=== PATIENT | female | born 1975 | race Caucasian/White ===

== ENCOUNTER 2017-01-08 00:45 | Inpatient (IN) | payer OTHER ==
[~2017-01-08] VITALS: Ht 157.5 cm; Wt 44.6 kg
[~2017-01-08 00:45] MED LIST: ADVIL200 MG PO; COMPAZINE10 MG PO; DAYSEE 0.15-0.1 EACH PO; FOLIC ACID0.8 MG PO; PROBIOTIC1 EAC1 PO; PROCRIT10000 UNI1 IV; PROPRANOLOL HCL80 MG PO; XANAX0.25 MG PO; ZANTAC150 MG PO
[2017-01-08 01:34] LABS: HEMATOCRIT 39.7 % (36.0-46.0); MCH 30.9 PG (29.0-34.0); MCHC 33.2 G/DL (30.0-36.0); MEAN PLAT.VOLUME 11.3 uM^3 (9.5-12.4); PLATELET COUNT 136 K/uL (156-360); RBC DIS.WIDTH-CV 14.6 % (11.8-14.6); RBC DIS.WIDTH-SD 49.4 % (39-53); RED BLOOD COUNT 4.27 M/uL (3.80-5.20); WHITE BLOOD COUNT 3.8 K/uL (4.1-10.2)
[2017-01-08 01:42] LABS: CHLORIDE 103 mEq/L (99-109); POTASSIUM 4.3 mEq/L (3.7-5.4); PTT 29.8 SEC (25-37); SODIUM 138 mEq/L (136-147)
[2017-01-08 01:44] LABS: GLUCOSE 87 mg/dL (70-99)
[2017-01-08 01:45] LABS: ANION GAP 11 MEQ/L (2-14)
[2017-01-08 01:47] LABS: GFR ESTIMATE (CALCULATED) > 59 mL/min/
[2017-01-08 01:48] LABS: UREA NITROGEN (BUN) 15 mg/dL (9-23)
[2017-01-08 02:12] LABS: TROP-I INTERPRETATION NEGATIVE; TROPONIN-I 0.01 ng/mL (0.0-0.30)
[2017-01-08] MEDS ORDERED: ATORVASTATIN CA20 MG PO (02:27)
[2017-01-08] MEDS ORDERED: CLOPIDOGREL75 MG PO (02:28)
[2017-01-08] MEDS ORDERED: AMLODIPINE BESYL5 MG PO (02:28)
[2017-01-08] MEDS ORDERED: ANTIVERT25 MG PO (02:29)
[2017-01-08] MEDS ORDERED: FLUTICASONE PRO16 GM BOTH NARES (02:29)
[2017-01-08 05:18] VITALS: BP 156/88
[2017-01-08 05:42] LABS: HDL CHOLESTEROL 45 MG/DL (Desirable>=50); LDL CHOLESTEROL 130 mg/dL (Desirable<100); NON-HDL CHOLESTEROL 160 mg/dL (Desirable<160); TOTAL CHOLESTEROL 205 mg/dL (Desirable<200); TRIGLYCERIDES 149 MG/DL (Normal: <150)
[2017-01-08 07:35] VITALS: BP 130/80
[2017-01-08 11:00] VITALS: BP 133/87
[2017-01-08 16:48] VITALS: BP 121/93
[2017-01-08 19:48] VITALS: BP 121/91
[2017-01-08 23:46] VITALS: BP 117/83
[2017-01-09 03:35] VITALS: BP 131/92
[2017-01-09 07:53] VITALS: BP 126/94
[2017-01-09 11:36] VITALS: BP 130/96
== END 2017-01-09 13:50 | disposition home health service (06) | DRG 69 ==
LOC: EME 00:45 → EDOF 04:04 → 5SOUTH 04:04 → ENRESERV 04:08 → 5SOUTH 05:11
PROVIDERS: Emergency Medicine
DX: G45.9 Transient cerebral ischemic attack, unspecified (principal); G43.109 Migraine with aura, not intractable, without status migrainosus; C34.12 Malignant neoplasm of upper lobe, left bronchus or lung; C78.7 Secondary malignant neoplasm of liver and intrahepatic bile duct; C79.31 Secondary malignant neoplasm of brain; J91.0 Malignant pleural effusion; C79.51 Secondary malignant neoplasm of bone; D70.1 Agranulocytosis secondary to cancer chemotherapy; D69.59 Other secondary thrombocytopenia; T45.1X5A Adverse effect of antineoplastic and immunosuppressive drugs, initial encounter; R47.01 Aphasia; R47.1 Dysarthria and anarthria; H53.2 Diplopia; R20.2 Paresthesia of skin; R64 Cachexia; Z68.1 Body mass index [BMI] 19.9 or less, adult; D64.9 Anemia, unspecified; M51.36 Other intervertebral disc degeneration, lumbar region; R53.81 Other malaise; I10 Essential (primary) hypertension; K21.9 Gastro-esophageal reflux disease without esophagitis; Z86.73 Personal history of transient ischemic attack (TIA), and cerebral infarction without residual deficits; Z82.49 Family history of ischemic heart disease and other diseases of the circulatory system; Z87.891 Personal history of nicotine dependence
CPT/HCPCS: 70450; 70553; 71020; 72148; 80048; 80061; 84484; 85027; 85610; 85730; 93005; 99281; 99285; J1644; J7030

== ENCOUNTER 2017-01-18 07:13 | Inpatient (IN) | payer OTHER ==
[~2017-01-18] VITALS: Ht 157.5 cm; Wt 39.2 kg
[~2017-01-18 07:13] MED LIST changes: +AMLODIPINE BESYL5 MG PO; +ANTIVERT25 MG PO; +ATORVASTATIN CA20 MG PO; +CLOPIDOGREL75 MG PO; +FLUTICASONE PRO16 GM BOTH NARES; +INDERAL80 MG PO
[2017-01-18 08:06] LABS: EOSINOPHIL (%) 0.7 % (0-5); HEMATOCRIT 42.4 % (36.0-46.0); IMMATURE GRANULOCYTE (%) 0.2 % (0.0-0.7); INSTRUMENT ABS NEUTROPHIL CT 2.2 K/uL; MCH 30.3 PG (29.0-34.0); MCHC 32.5 G/DL (30.0-36.0); MCV 93.2 FL (83-99); MEAN PLAT.VOLUME 10.6 uM^3 (9.5-12.4); MONOCYTE (%) 20.5 % (3-12); MONOCYTE COUNT 0.8 K/uL (0-0.8); NEUTROPHIL COUNT 2.2 K/uL (1.8-6.4); RBC DIS.WIDTH-CV 14.8 % (11.8-14.6); RBC DIS.WIDTH-SD 50.7 % (39-53); RED BLOOD COUNT 4.55 M/uL (3.80-5.20); WHITE BLOOD COUNT 4.1 K/uL (4.1-10.2)
[2017-01-18 08:10] LABS: PLATELET COUNT 228 K/uL (156-360)
[2017-01-18 08:41] LABS: PROTHROMBIN TIME 10.8 SEC (10.2-12.9)
[2017-01-18 08:51] LABS: ANION GAP 11 MEQ/L (2-14); CHLORIDE 104 MEQ/L (99-109); SAMPLE HEMOLYSIS CHECK 0; SAMPLE ICTERIC CHECK 0; SAMPLE LIPEMIA CHECK 0; SODIUM 139 MEQ/L (136-147); TOTAL BILIRUBIN 0.4 MG/DL (0.0-1.0)
[2017-01-18 08:57] LABS: ALKALINE PHOSPHATASE 57 IU/L (3-129); GFR ESTIMATE (CALCULATED) > 59 mL/min/; GLUCOSE 87 mg/dL (70-99); UREA NITROGEN (BUN) 23 mg/dL (9-23)
[2017-01-18 11:58] LABS: HDL CHOLESTEROL 45 MG/DL (Desirable>=50); LDL CHOLESTEROL 89 mg/dL (Desirable<100); NON-HDL CHOLESTEROL 121 mg/dL (Desirable<160); TOTAL CHOLESTEROL 166 mg/dL (Desirable<200); TRIGLYCERIDES 158 MG/DL (Normal: <150)
[2017-01-18 12:53] VITALS: BP 130/82
[2017-01-18 13:13] LABS: Estimated Average Glucose 100 mg/dL (70-123); HEMOGLOBIN A1c (GLYCOHEMOGLOB) 5.1 % HGB (Below 5.7)
[2017-01-18 20:27] VITALS: BP 139/106
[2017-01-18 23:35] VITALS: BP 138/103
[2017-01-19 06:31] LABS: HEMATOCRIT 40.9 % (36.0-46.0); MCH 30.9 PG (29.0-34.0); MCHC 33.3 G/DL (30.0-36.0); MEAN PLAT.VOLUME 10.7 uM^3 (9.5-12.4); PLATELET COUNT 203 K/uL (156-360); RBC DIS.WIDTH-CV 14.7 % (11.8-14.6); RBC DIS.WIDTH-SD 50.4 % (39-53); WHITE BLOOD COUNT 3.7 K/uL (4.1-10.2)
[2017-01-19 07:03] VITALS: BP 146/87
[2017-01-19 15:06] VITALS: BP 141/87
[2017-01-20 00:54] VITALS: BP 135/97
[2017-01-20 02:16] LABS: POINT-OF-CARE METER ID UU14188625
[2017-01-20 02:16] LABS: HEMATOCRIT 40.2 % (36.0-46.0); MCH 30.9 PG (29.0-34.0); MCHC 33.1 G/DL (30.0-36.0); MCV 93.3 FL (83-99); MEAN PLAT.VOLUME 10.3 uM^3 (9.5-12.4); PLATELET COUNT 198 K/uL (156-360); RBC DIS.WIDTH-CV 14.7 % (11.8-14.6); RED BLOOD COUNT 4.31 M/uL (3.80-5.20); WHITE BLOOD COUNT 4.2 K/uL (4.1-10.2)
[2017-01-20 02:33] LABS: CHLORIDE 107 mEq/L (99-109); SODIUM 140 mEq/L (136-147)
[2017-01-20 02:40] LABS: TOTAL BILIRUBIN 0.3 mg/dL (0.0-1.0)
[2017-01-20 02:48] LABS: GLUCOSE 99 mg/dL (70-99)
[2017-01-20 02:49] LABS: ANION GAP 14 MEQ/L (2-14)
[2017-01-20 02:51] LABS: ALKALINE PHOSPHATASE 54 IU/L (3-129); GFR ESTIMATE (CALCULATED) > 59 mL/min/
[2017-01-20 02:53] LABS: UREA NITROGEN (BUN) 14 mg/dL (9-23)
[2017-01-20 08:00] VITALS: BP 135/111
[2017-01-20 15:50] VITALS: BP 142/102
[2017-01-20 21:09] VITALS: BP 145/90
[2017-01-20 23:42] VITALS: BP 122/79
[2017-01-21 07:39] VITALS: BP 138/90
[2017-01-21 16:11] VITALS: BP 129/94
[2017-01-21 21:30] VITALS: BP 131/78
[2017-01-21 23:37] VITALS: BP 114/79
[2017-01-22 03:36] VITALS: BP 163/113
[2017-01-22 07:24] VITALS: BP 144/96
[2017-01-22] MEDS ORDERED: ASPIR-LOW81 MG PO (11:13)
[2017-01-22] MEDS ORDERED: LOVENOX40 MG/0.4 SC (11:13)
[2017-01-22] MEDS ORDERED: PERCOCET 5/31 TABLET PO (13:40)
[2017-01-23] MEDS ORDERED: ASPIR 8181 M1 PO (21:06)
== END 2017-01-22 14:11 | disposition home or self-care (01) | DRG 65 ==
LOC: EME 07:13 → EDOF 10:36 → 5SOUTH 10:36 → ENRESERV 10:37 → 5SOUTH 12:45
PROVIDERS: Emergency Medicine; Internal Medicine
DX: I63.9 Cerebral infarction, unspecified (principal); C34.12 Malignant neoplasm of upper lobe, left bronchus or lung; R47.01 Aphasia; R47.1 Dysarthria and anarthria; K21.9 Gastro-esophageal reflux disease without esophagitis; C79.31 Secondary malignant neoplasm of brain; C77.1 Secondary and unspecified malignant neoplasm of intrathoracic lymph nodes; C79.51 Secondary malignant neoplasm of bone; J91.0 Malignant pleural effusion; G43.109 Migraine with aura, not intractable, without status migrainosus; I10 Essential (primary) hypertension; Z87.891 Personal history of nicotine dependence; Z92.3 Personal history of irradiation; Z92.21 Personal history of antineoplastic chemotherapy; C78.7 Secondary malignant neoplasm of liver and intrahepatic bile duct; H53.2 Diplopia; G51.0 Bell's palsy; H49.21 Sixth [abducent] nerve palsy, right eye; Z79.01 Long term (current) use of anticoagulants; R29.6 Repeated falls; R13.10 Dysphagia, unspecified
CPT/HCPCS: 70450; 70496; 70553; 74230; 80053; 80061; 82948; 83036; 85025; 85027; 85610; 85730; 92526 GN; 92610 GN; 92611 GN; 93005; 93306; 93970; 99281; 99285; J1650; J7030

== ENCOUNTER 2017-01-23 18:37 | Inpatient (IN) | payer OTHER ==
[~2017-01-23] VITALS: Ht 157.5 cm; Wt 43.9 kg
[~2017-01-23 18:37] MED LIST changes: +ASPIR-LOW81 MG PO; +LOVENOX40 MG/0.4 SC; +PERCOCET 5/31 TABLET PO
[2017-01-23 19:26] LABS: HEMATOCRIT 41.8 % (36.0-46.0); MCH 30.6 PG (29.0-34.0); MCHC 33.5 G/DL (30.0-36.0); MCV 91.3 FL (83-99); MEAN PLAT.VOLUME 10.2 uM^3 (9.5-12.4); PLATELET COUNT 178 K/uL (156-360); RBC DIS.WIDTH-CV 14.6 % (11.8-14.6); RBC DIS.WIDTH-SD 48.7 % (39-53); RED BLOOD COUNT 4.58 M/uL (3.80-5.20); WHITE BLOOD COUNT 5.8 K/uL (4.1-10.2)
[2017-01-23 19:37] LABS: CHLORIDE 107 mEq/L (99-109); POTASSIUM 3.8 mEq/L (3.7-5.4); SODIUM 139 mEq/L (136-147)
[2017-01-23 19:39] LABS: GLUCOSE 95 mg/dL (70-99)
[2017-01-23 19:41] LABS: ANION GAP 13 MEQ/L (2-14)
[2017-01-23 19:43] LABS: GFR ESTIMATE (CALCULATED) > 59 mL/min/
[2017-01-23 19:44] LABS: UREA NITROGEN (BUN) 9 mg/dL (9-23)
[2017-01-23 20:00] LABS: PROTHROMBIN TIME 11.1 SEC (10.2-12.9)
[2017-01-23 20:02] LABS: PTT 39.2 SEC (25-37)
[2017-01-23] MEDS ORDERED: ASPIR 8181 M1 PO (21:06)
[2017-01-23 22:46] VITALS: BP 175/106
[2017-01-24 04:37] VITALS: BP 127/90
[2017-01-24 07:43] VITALS: BP 157/115
[2017-01-24 10:51] VITALS: BP 135/104
[2017-01-24 16:22] VITALS: BP 129/91
[2017-01-24 20:00] VITALS: BP 149/100
[2017-01-24 23:13] VITALS: BP 141/97
[2017-01-25 02:36] VITALS: BP 160/100
[2017-01-25 05:25] LABS: EOSINOPHIL (%) 0.5 % (0-5); HEMATOCRIT 39.4 % (36.0-46.0); IMMATURE GRANULOCYTE (%) 0.2 % (0.0-0.7); INSTRUMENT ABS NEUTROPHIL CT 4.1 K/uL; MCH 31.3 PG (29.0-34.0); MCHC 33.5 G/DL (30.0-36.0); MCV 93.4 FL (83-99); MEAN PLAT.VOLUME 10.4 uM^3 (9.5-12.4); MONOCYTE (%) 10.5 % (3-12); MONOCYTE COUNT 0.6 K/uL (0-0.8); NEUTROPHIL (%) 70.7 % (45-76); NEUTROPHIL COUNT 4.1 K/uL (1.8-6.4); PLATELET COUNT 159 K/uL (156-360); RBC DIS.WIDTH-CV 14.8 % (11.8-14.6); RBC DIS.WIDTH-SD 50.5 % (39-53); RED BLOOD COUNT 4.22 M/uL (3.80-5.20); WHITE BLOOD COUNT 5.7 K/uL (4.1-10.2)
[2017-01-25 08:37] LABS: ALKALINE PHOSPHATASE 47 IU/L (3-129); ANION GAP 8 MEQ/L (2-14); CHLORIDE 108 MEQ/L (99-109); GFR ESTIMATE (CALCULATED) > 59 mL/min/; GLUCOSE 90 mg/dL (70-99); MAGNESIUM 1.9 mg/dl (1.3-2.7); POTASSIUM 3.6 MEQ/L (3.7-5.4); PREALBUMIN 25.4 mg/dL (10-40); SAMPLE HEMOLYSIS CHECK 0; SAMPLE ICTERIC CHECK 0; SAMPLE LIPEMIA CHECK 0; SODIUM 140 MEQ/L (136-147); TOTAL BILIRUBIN 0.4 MG/DL (0.0-1.0); TRIGLYCERIDES 142 MG/DL (Normal: <150); UREA NITROGEN (BUN) 12 mg/dL (9-23)
[2017-01-25 11:00] VITALS: BP 164/108
[2017-01-25 12:52] LABS: POINT-OF-CARE METER ID UU13113831
[2017-01-25 13:11] LABS: CHLORIDE 108 mEq/L (99-109); POTASSIUM 3.9 mEq/L (3.7-5.4); SODIUM 139 mEq/L (136-147)
[2017-01-25 13:12] LABS: EOSINOPHIL (%) 0.1 % (0-5); HEMATOCRIT 42.9 % (36.0-46.0); IMMATURE GRANULOCYTE (%) 0.3 % (0.0-0.7); INSTRUMENT ABS NEUTROPHIL CT 4.9 K/uL; LYMPHOCYTE COUNT 1.2 K/uL (1.0-2.8); MCH 30.5 PG (29.0-34.0); MCHC 33.1 G/DL (30.0-36.0); MCV 92.3 FL (83-99); MEAN PLAT.VOLUME 10.5 uM^3 (9.5-12.4); MONOCYTE (%) 7.8 % (3-12); MONOCYTE COUNT 0.5 K/uL (0-0.8); NEUTROPHIL (%) 73.6 % (45-76); NEUTROPHIL COUNT 4.9 K/uL (1.8-6.4); PLATELET COUNT 186 K/uL (156-360); RBC DIS.WIDTH-CV 14.7 % (11.8-14.6); RBC DIS.WIDTH-SD 49.6 % (39-53); RED BLOOD COUNT 4.65 M/uL (3.80-5.20); WHITE BLOOD COUNT 6.7 K/uL (4.1-10.2)
[2017-01-25 13:13] LABS: GLUCOSE 95 mg/dL (70-99)
[2017-01-25 13:14] LABS: ANION GAP 10 MEQ/L (2-14); PROTHROMBIN TIME 11.5 SEC (10.2-12.9)
[2017-01-25 13:15] LABS: TOTAL BILIRUBIN 0.4 mg/dL (0.0-1.0)
[2017-01-25 13:16] LABS: ALKALINE PHOSPHATASE 57 IU/L (3-129)
[2017-01-25 13:17] LABS: GFR ESTIMATE (CALCULATED) > 59 mL/min/
[2017-01-25 13:18] LABS: PTT 42.3 SEC (25-37); UREA NITROGEN (BUN) 10 mg/dL (9-23)
[2017-01-25 13:23] LABS: TROP-I INTERPRETATION NEGATIVE; TROPONIN-I < 0.01 ng/mL (0.0-0.30)
[2017-01-25 14:12] VITALS: BP 157/112
[2017-01-25 15:00] VITALS: BP 148/102
[2017-01-25 16:06] VITALS: BP 159/103
[2017-01-25 18:46] LABS: APPEARANCE XANTHOCHROMIC
[2017-01-25 18:47] LABS: RED CELL AREA COUNTED 18; RED CELL COUNT 45 /MM^3 (0-1); RED CELL DILUTION 1; WBC AREA COUNTED 18; WBC DILUTION 1; WHITE CELL COUNT 53 /MM^3 (0-5); WHITE CELL RAW COUNT 95
[2017-01-25 18:49] LABS: CSF EOSINOPHILS 0 % (0-25); MONO RAW COUNT 96; MONONUCLEAR WBC'S 96 % (50-90); POLY RAW COUNT 4; POLYNUCLEAR WBC'S 4 % (0-3)
[2017-01-25 19:30] VITALS: BP 138/100
[2017-01-25 19:36] LABS: APPEARANCE (RECHECK) XANTHOCHROMIC; CSF TUBE NUMBER (RECHECK) TUBE #1; RED CELL AREA COUNTED 18; RED CELL COUNT (RECHECK) 18 /MM^3 (0-1); RED CELL DILUTION 1
[2017-01-26 07:30] VITALS: BP 157/102
[2017-01-26 09:16] LABS: EOSINOPHIL (%) 0 % (0-5); HEMATOCRIT 35.8 % (36.0-46.0); IMMATURE GRANULOCYTE (%) 0.4 % (0.0-0.7); INSTRUMENT ABS NEUTROPHIL CT 6.8 K/uL; LYMPHOCYTE COUNT 0.4 K/uL (1.0-2.8); MCH 31.4 PG (29.0-34.0); MCHC 33.8 G/DL (30.0-36.0); MEAN PLAT.VOLUME 10.9 uM^3 (9.5-12.4); MONOCYTE (%) 1.2 % (3-12); MONOCYTE COUNT 0.1 K/uL (0-0.8); NEUTROPHIL (%) 93.3 % (45-76); NEUTROPHIL COUNT 6.8 K/uL (1.8-6.4); PLATELET COUNT 157 K/uL (156-360); RBC DIS.WIDTH-CV 14.9 % (11.8-14.6); RBC DIS.WIDTH-SD 50.8 % (39-53); RED BLOOD COUNT 3.85 M/uL (3.80-5.20); WHITE BLOOD COUNT 7.3 K/uL (4.1-10.2)
[2017-01-26 09:40] LABS: ALKALINE PHOSPHATASE 42 IU/L (3-129); ANION GAP 10 MEQ/L (2-14); CHLORIDE 110 MEQ/L (99-109); GFR ESTIMATE (CALCULATED) > 59 mL/min/; SAMPLE HEMOLYSIS CHECK 0; SAMPLE ICTERIC CHECK 0; SAMPLE LIPEMIA CHECK 0; SODIUM 139 MEQ/L (136-147)
[2017-01-26 09:41] LABS: GLUCOSE 209 mg/dL (70-99); MAGNESIUM 2.2 mg/dl (1.3-2.7); TOTAL BILIRUBIN 0.2 MG/DL (0.0-1.0); UREA NITROGEN (BUN) 24 mg/dL (9-23)
[2017-01-26 12:10] VITALS: BP 146/102
[2017-01-26 16:52] VITALS: BP 163/112
[2017-01-26 19:35] VITALS: BP 166/102
[2017-01-27 00:14] VITALS: BP 177/112
[2017-01-27 03:45] VITALS: BP 177/101
[2017-01-27 06:48] LABS: BASOPHIL COUNT 0.1 K/uL (0-0.1); EOSINOPHIL (%) 0 % (0-5); HEMATOCRIT 41.8 % (36.0-46.0); IMMATURE GRANULOCYTE (%) 0.9 % (0.0-0.7); IMMATURE GRANULOCYTE COUNT 0.3 K/uL; INSTRUMENT ABS NEUTROPHIL CT 32.1 K/uL; LYMPHOCYTE COUNT 0.8 K/uL (1.0-2.8); MCH 31.8 PG (29.0-34.0); MCV 93.7 FL (83-99); MEAN PLAT.VOLUME 10.6 uM^3 (9.5-12.4); MONOCYTE (%) 3.1 % (3-12); MONOCYTE COUNT 1.1 K/uL (0-0.8); NEUTROPHIL (%) 93.5 % (45-76); NEUTROPHIL COUNT 32.1 K/uL (1.8-6.4); RBC DIS.WIDTH-CV 15.5 % (11.8-14.6); RED BLOOD COUNT 4.46 M/uL (3.80-5.20)
[2017-01-27 06:51] LABS: PLATELET COUNT 219 K/uL (156-360); WHITE BLOOD COUNT 34.4 K/uL (4.1-10.2)
[2017-01-27 06:55] LABS: ALKALINE PHOSPHATASE 50 IU/L (3-129); ANION GAP 16 MEQ/L (2-14); CHLORIDE 104 MEQ/L (99-109); DIRECT BILIRUBIN 0.1 mg/dL (0.0-0.3); GFR ESTIMATE (CALCULATED) > 59 mL/min/; MAGNESIUM 1.9 mg/dl (1.3-2.7); PREALBUMIN 29.4 mg/dL (10-40); SAMPLE HEMOLYSIS CHECK 1; SAMPLE ICTERIC CHECK 0; SAMPLE LIPEMIA CHECK 1; SODIUM 140 MEQ/L (136-147); TRIGLYCERIDES 242 MG/DL (Normal: <150); UREA NITROGEN (BUN) 19 mg/dL (9-23)
[2017-01-27 06:56] LABS: GLUCOSE 118 mg/dL (70-99); TOTAL BILIRUBIN 0.4 MG/DL (0.0-1.0)
[2017-01-27 08:15] VITALS: BP 180/120
[2017-01-28 06:58] VITALS: BP 139/83
[2017-01-31] MEDS ORDERED: MORPHINE CON20 MG/M1 PO (08:59)
[2017-01-31] MEDS ORDERED: LEVSIN0.125 MG PO (08:59)
[2017-01-31] MEDS ORDERED: ATIVAN INTE2 MG/1 ML PO (08:59)
[2017-01-31 11:27] VITALS: BP 00/00
== END 2017-01-31 11:15 | disposition hospice, home (50) | DRG 54 ==
LOC: EME 18:37 → EDOF 20:50 → 5WEST 20:50 → EDOF 20:50 → ENRESERV 20:51 → 5WEST 22:32 → 5SOUTH 01-24 12:03 → ENRESERV 01-24 12:24 → CANRESERV 01-24 17:34 → ENRESERV 01-25 14:02 → 5SOUTH 01-25 14:12
PROVIDERS: Emergency Medicine; Hospitalist; Internal Medicine; Physician Assistant; Specialist; Student in an Organized Health Care Education/Training Program
PROC: 3E0436Z Introduction of Nutritional Substance into Central Vein, Percutaneous Approach (ICD-10-PCS; principal; 2017-01-25)
PROC: 009U3ZX Drainage of Spinal Canal, Percutaneous Approach, Diagnostic (ICD-10-PCS; principal; 2017-01-25)
DX: C79.49 Secondary malignant neoplasm of other parts of nervous system (principal); G03.8 Meningitis due to other specified causes; C79.31 Secondary malignant neoplasm of brain; C78.7 Secondary malignant neoplasm of liver and intrahepatic bile duct; C79.51 Secondary malignant neoplasm of bone; C77.1 Secondary and unspecified malignant neoplasm of intrathoracic lymph nodes; H49.21 Sixth [abducent] nerve palsy, right eye; E46 Unspecified protein-calorie malnutrition; I10 Essential (primary) hypertension; R13.10 Dysphagia, unspecified; R25.1 Tremor, unspecified; R45.1 Restlessness and agitation; E78.5 Hyperlipidemia, unspecified; K21.9 Gastro-esophageal reflux disease without esophagitis; D64.9 Anemia, unspecified; R29.6 Repeated falls; Z51.5 Encounter for palliative care; Z68.1 Body mass index [BMI] 19.9 or less, adult; Z87.891 Personal history of nicotine dependence; Z86.73 Personal history of transient ischemic attack (TIA), and cerebral infarction without residual deficits; Z85.118 Personal history of other malignant neoplasm of bronchus and lung
CPT/HCPCS: 70450; 70496; 70498; 70544; 70553; 71010; 71260; 74177; 80048; 80053; 80202; 82248; 82330; 82945; 82948; 83519 90; 83605; 83735; 84100; 84134; 84157; 84478; 84484; 84540; 84630 90; 85025; 85025 91; 85027; 85610; 85730; 86255 90; 87040; 87070; 87102; 87116; 87205; 87206; 88108; 89051; 93005; 93880; 99281; 99284; G0378; J0696; J1100; J1650; J1885; J2060; J2270; J3370; J7030; J7050